=== PATIENT | female | born 1965 | race Caucasian/White ===

== ENCOUNTER 2018-06-07 11:41 | Emergency (ER) | payer OTHER ==
[~2018-06-07] VITALS: Ht 167.6 cm; Wt 60.8 kg
[2018-06-07 11:51] VITALS: BP 144/77
[2018-06-07] MEDS ORDERED: TETRACAINE 0.5% OPHTH SOLUTION 4ML BOTTLE. OS ONE (12:10)
[2018-06-07] MEDS ORDERED: FLUORESCEIN 1MG EYE STRIP. OS ONE (12:10)
[2018-06-07] MEDS ORDERED: NAPROXEN 500 MG TABLET PO ONE (12:30)
[2018-06-07] MEDS ORDERED: OFLO5DRO LEFTEYE (12:34)
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
== END 2018-06-07 12:49 | disposition home or self-care (01) ==
LOC: ER 11:41
DX: S05.02XA Injury of conjunctiva and corneal abrasion without foreign body, left eye, initial encounter (principal); T20.19XA Burn of first degree of multiple sites of head, face, and neck, initial encounter; X19.XXXA Contact with other heat and hot substances, initial encounter; Y93.89 Activity, other specified; Y99.8 Other external cause status; Y92.89 Other specified places as the place of occurrence of the external cause
CPT/HCPCS: 99284